=== PATIENT | male | born 1985 | race Caucasian/White ===

== ENCOUNTER 2019-03-11 18:07 | Emergency (ER) | payer BC, MEDICAID ==
--- NOTE | 2019-03-11 19:49 | EDM.PDOC ---
ED HPI GENERAL MEDICAL PROBLEM - General Chief Complaint: Skin Complaint Stated Complaint: ATHLETES FOOT Time Seen by Provider: 03/11/19 19:15 Source of Information: Reports: Patient History Limitations: Reports: No Limitations - History of Present Illness INITIAL COMMENTS - FREE TEXT/NARRATIVE: HISTORY AND PHYSICAL: History of present illness: Patient is a 33-year-old male who presents to the emergency room with complaints of athlete's foot to the anterior aspect of his right foot. Patient states he has had this before and did have to have prescription strength antifungal cream to get rid of it. He states that he has had sweaty feet and his work boots for long periods of time and has noticed the symptoms progressively getting worse. He states he has tried using multiple over-the- counter remedies without any help. Patient denies any fever, chills, headache, change in vision, syncope or near syncope. Denies any chest pain, back pain, shortness of breath or cough. Denies any GI or symptoms. Patient has been eating and drinking appropriately. Review of systems: As per history of present illness and below otherwise all systems reviewed and negative. Past medical history: As per history of present illness and as reviewed below otherwise noncontributory. Surgical history: As per history of present illness and as reviewed below otherwise noncontributory. Social history: See social history for further information Family history: As per history of present illness and as reviewed below otherwise noncontributory. Physical exam: General: Well-developed and well-nourished 33-year-old male. Alert and oriented. Nontoxic-appearing and in no acute distress. HEENT: Atraumatic, normocephalic, pupils equal and reactive bilaterally, negative for conjunctival pallor or scleral icterus, mucous membranes moist, trachea midline. No drooling or trismus noted. No meningeal signs. No hot potato voice noted. Lungs: Clear to auscultation, breath sounds equal bilaterally. Heart: S1S2, regular rate and rhythm without overt murmur Skin: Palmar size area of erythema with fungal type scales to the anterior aspect of the left foot. Mild erythema around the site. Otherwise skin is intact, warm, dry. No lesions or rashes noted. Extremities: Atraumatic, moves all extremities per self without difficulty or deficits, negative for cords or calf pain. Neurovascular unremarkable. Neuro: Awake, alert, oriented. Cranial nerves II through XII unremarkable. Cerebellum unremarkable. Motor and sensory unremarkable throughout. Exam nonfocal. Notes: We discussed the importance of having close follow-up with primary care for reevaluation of this. Medication and supportive care measures were reviewed and discussed. Voices understanding and is agreeable to plan of care. Denies any further questions or concerns at this time. Diagnostics: None Therapeutics: None Prescription: Keflex Impression: Tinea pedis Plan: 1. Please do aluminum acetate topical soaks twice daily for 15 to 30 minutes over the next 7 days. This can be bought [id number]. 2. The Keflex is an oral antibiotic, please take this as directed. 3. You can use cebw-vci-xznsgey Lamisil 1% cream twice daily for 1 to 4 weeks. If you have already been using these octq-lun-pxyobdl products you can get the Naftifine, although I believe this medication is very expensive. Please try all nbbm-kpl-ujwspxw products first before resorting to this. 4. Follow-up with your primary care provider as we discussed. Return to the ED as needed and as discussed. Definitive disposition and diagnosis as appropriate pending reevaluation and review of above. Right Feet Pain Score (Numeric/FACES): 8 - Related Data Allergies Allergy/AdvReac Type Severity Reaction Status Date / Time No Known Allergies Allergy Verified 05/22/18 18:02 MDT Home Meds: Home Meds Methylphenidate. 1 tab PO DAILY 05/22/18 [History] lamoTRIgine [Lamotrigine] 100 mg PO 03/11/19 [History] Past Medical History HEENT History: Reports: Impaired Vision Other HEENT History: wears contacts Musculoskeletal History: Reports: Fracture Other Musculoskeletal History: right hand and arm left great toe left hand Psychiatric History: Reports: ADHD Social & Family History - Family History Family Medical History: Noncontributory - Tobacco Use Smoking Status *Q: Never Smoker Second Hand Smoke Exposure: No - Caffeine Use Caffeine Use: Reports: None - Alcohol Use Days Per Week of Alcohol Use: 3 Number of Drinks Per Day: 3 Total Drinks Per Week: 9 - Recreational Drug Use Recreational Drug Use: No ED ROS GENERAL - Review of Systems Review Of Systems: Comprehensive ROS is negative, except as noted in HPI. ED EXAM, SKIN/RASH Exam: See Below (See dictation) Course - Vital Signs Last Recorded V/S: Last Vital Signs Temp 97.3 F 03/11/19 20:00 Pulse 72 03/11/19 20:00 Resp 18 03/11/19 20:00 BP 118/78 03/11/19 20:00 Pulse Ox 98 03/11/19 20:00 Departure - Departure Time of Disposition: 19:49 Disposition: Home, Self-Care 01 Clinical Impression: Tinea pedis Qualifiers: Laterality: right Qualified Code(s): B35.3 - Tinea pedis - Discharge Information Instructions: Athlete's Foot, [id number] Referrals: PCP,None [Primary Care Provider] - Forms: ED Department Discharge Additional Instructions: General discharge the following information is given to patients seen in the emergency department who are being discharged to home. This information is to outline your options for follow-up care. We provide all patients seen in our emergency department with a follow-up referral. The need for follow-up, as well as the timing and circumstances, are variable depending upon the specifics of your emergency department visit. If you don't have a primary care physician on staff, we will provide you with a referral. We always advise you to contact your personal physician following an emergency department visit to inform them of the circumstance of the visit and for follow-up with them and/or the need for any referrals to a consulting specialist. The emergency department will also refer you to a specialist when appropriate. This referral assures that you have the opportunity for follow-up care with a specialist. All of these measure are taken in an effort to provide you with optimal care, which includes your follow-up. Under all circumstances we always encourage you to contact your private physician who remains a resource for coordinating your care. When calling for follow-up care, please make the office aware that this follow-up is from your recent emergency room visit. If for any reason you are refused follow-up, please contact the [facility] Emergency Department at and asked to speak to the emergency department charge nurse. [facility] [address] [place] [id number] [id number] 1. Please do aluminum acetate topical soaks twice daily for 15 to 30 minutes over the next 7 days. This can be bought [id number]. 2. The Keflex is an oral antibiotic, please take this as directed. 3. You can use hflb-kbz-dykejlc Lamisil 1% cream twice daily for 1 to 4 weeks. If you have already been using these smum-hqd-zbalmzk products you can get the Naftifine, although I believe this medication is very expensive. Please try all sclb-jht-spzlvbs products first before resorting to this. 4. Follow-up with your primary care provider as we discussed. Return to the ED as needed and as discussed. Sepsis Event Note - Evaluation Sepsis Screening Result: No Definite Risk - Focused Exam Vital Signs: Vital Signs Temp Pulse Resp BP Pulse Ox 03/11/19 20:00 97.3 F 72 18 118/78 98 03/11/19 18:59 97.5 F 78 18 125/80 98 Date Exam was Performed: 03/11/19 Time Exam was Performed: 21:19
[2019-03-11 20:04] VITALS: BP 118/78; PULSE 72
== END 2019-03-11 20:00 | disposition home or self-care (01) ==
LOC: MW.ED 18:07
DX: B35.3 Tinea pedis (principal); F90.9 Attention-deficit hyperactivity disorder, unspecified type; Z79.899 Other long term (current) drug therapy
CPT/HCPCS: 99283

== ENCOUNTER 2023-01-15 19:36 | Emergency (ER) | payer BC ==
[2023-01-15] MEDS ORDERED: Sodium Chloride 0.9% 10 ML Syringe FLUSH PRN (20:25)
[2023-01-15] MEDS ORDERED: Sodium Chloride 0.9% 1,000 ML IV ONE (20:25)
[2023-01-15] MEDS ORDERED: Sodium Chloride 0.9% 2.5 ML Syringe FLUSH PRN (20:25)
[2023-01-15 20:36] LABS: BASOPHILS ABSOLUTE AUTO 0.04 K/uL (0.00-0.20); BASOPHILS PERCENT AUTO 0.3 % (0.0-1.0); EOSINOPHILS ABSOLUTE AUTO 0.01 K/uL (0.00-0.45); EOSINOPHILS PERCENT AUTO 0.1 % (0.0-6.0); HEMATOCRIT 45.1 % (42.0-52.0); HEMOGLOBIN 15.6 g/dL (14.0-18.0); IMMATURE GRAN ABSOLUTE AUTO 0.04 K/uL (0.00-0.05); IMMATURE GRAN PERCENT AUTO 0.3 % (0.0-0.4); LYMPHOCYTES ABSOLUTE AUTO 3.69 K/uL (1.00-4.80); LYMPHOCYTES PERCENT AUTO 25.4 % (24.0-44.0); MEAN CORPUSCULAR HEMOGLOBIN 28.5 pg (28.0-32.0); MEAN CORPUSCULAR HGB CONC 34.6 g/dL (32.0-36.0); MEAN CORPUSCULAR VOLUME 82.3 fL (83.0-99.0); MONOCYTES ABSOLUTE AUTO 1.03 K/uL (0.00-0.80); MONOCYTES PERCENT AUTO 7.1 % (0.0-8.0); NEUTROPHILS ABSOLUTE AUTO 9.74 K/uL (1.80-7.70); NEUTROPHILS PERCENT AUTO 66.8 % (41.0-71.0); PLATELET COUNT,PLT 251 K/uL (150-400); RED BLOOD CELL COUNT 5.48 M/uL (4.52-5.90); WHITE BLOOD CELL COUNT,WBC 14.55 K/uL (3.9-11.3)
[2023-01-15] MEDS ORDERED: Ondansetron 4 MG/2 ML SDV IVPUSH STA (20:41)
[2023-01-15 20:49] LABS: A/G RATIO 1.2 (0.9-1.6); BILIRUBIN TOTAL 0.9 mg/dL (0.2-1.0); CALCIUM 10.3 mg/dL (8.5-10.1); CARBON DIOXIDE,CO2 24.5 mmol/L (21.0-32.0); CREATININE 1.1 mg/dL (0.8-1.3); EST CRCL DRUG DOSING (CG) 109.89 mL/min; MAGNESIUM 1.9 mg/dL (1.8-2.4); POTASSIUM,K 3.6 mmol/L (3.5-5.1); PROTEIN TOTAL,TP 9.2 g/dL (6.4-8.2)
[2023-01-15 21:18] LABS: CORONAVIRUS COVID-19 NAA NEGATIVE (NEGATIVE); INFLUENZA A NAA NEGATIVE (NEGATIVE); INFLUENZA B NAA NEGATIVE (NEGATIVE); RESPIRATORY SYNCYTIAL VIR NAA NEGATIVE (NEGATIVE)
[2023-01-15 22:31] VITALS: BP 126/80; PULSE 70
== END 2023-01-15 21:40 | disposition home or self-care (01) ==
LOC: MW.ED 19:36
DX: R41.0 Disorientation, unspecified (principal); R11.10 Vomiting, unspecified; Z20.822 Contact with and (suspected) exposure to COVID-19
CPT/HCPCS: 0241U; 36415; 71045; 80053; 83690; 83735; 84484; 85025; 93005; 96361; 96374; 99285; J2405; J3490; J7030; 93010; 99284

== ENCOUNTER 2023-04-08 05:29 | Emergency (ER) | payer SELFPAY ==
[2023-04-08 05:41] VITALS: BP 136/91
[2023-04-08 05:51] VITALS: PULSE 94
[2023-04-08 06:45] LABS: CORONAVIRUS COVID-19 NAA NEGATIVE (NEGATIVE); INFLUENZA A NAA NEGATIVE (NEGATIVE); INFLUENZA B NAA NEGATIVE (NEGATIVE); RESPIRATORY SYNCYTIAL VIR NAA NEGATIVE (NEGATIVE)
== END 2023-04-08 06:03 | disposition home or self-care (01) ==
LOC: MW.ED 05:29
DX: R05.9 Cough, unspecified (principal); R49.1 Aphonia
CPT/HCPCS: 0241U; 87651; 99283; 99282

== ENCOUNTER 2023-07-15 06:57 | Emergency (ER) | payer SELFPAY ==
[2023-07-15 07:45] VITALS: BP 139/90; PULSE 102
[2023-07-15] MEDS: Ibuprofen 600 MG Tab PO ONE (07:49)
== END 2023-07-15 07:50 | disposition home or self-care (01) ==
LOC: MW.ED 06:57
DX: S62.324A Displaced fracture of shaft of fourth metacarpal bone, right hand, initial encounter for closed fracture (principal); S62.306A Unspecified fracture of fifth metacarpal bone, right hand, initial encounter for closed fracture; Z79.899 Other long term (current) drug therapy; Y04.8XXA Assault by other bodily force, initial encounter
CPT/HCPCS: 29125; 73130; 99283; A9270

== ENCOUNTER 2024-03-30 10:39 | Emergency (ER) | payer SELFPAY ==
[2024-03-30 11:12] VITALS: BP 139/100; PULSE 100
== END 2024-03-30 12:52 | disposition home or self-care (01) ==
LOC: MW.ED 10:39
DX: M70.21 Olecranon bursitis, right elbow (principal); Z75.8 Other problems related to medical facilities and other health care; Z79.899 Other long term (current) drug therapy
CPT/HCPCS: 73080-26-RT; 73080-RT; 99283

== ENCOUNTER 2024-03-30 23:11 | Emergency (ER) | payer SELFPAY | END 2024-03-31 00:32 | disposition left against medical advice (07) | LOC: MW.ED 23:11 | DX: Z53.21 Procedure and treatment not carried out due to patient leaving prior to being seen by health care provider (principal) ==

== ENCOUNTER 2024-05-17 11:44 | Emergency (ER) | payer SELFPAY ==
[2024-05-17] MEDS ORDERED: Sodium Chloride 0.9% 2.5 ML Syringe FLUSH PRN (11:54)
[2024-05-17] MEDS ORDERED: Sodium Chloride 0.9% 10 ML Syringe FLUSH PRN (11:54)
[2024-05-17] MEDS: Ondansetron 4 MG/2 ML SDV IVPUSH ONE (12:06)
[2024-05-17] MEDS: Sodium Chloride 0.9% 1,000 ML IV ONE ×2 (12:06→12:59)
[2024-05-17] MEDS: LORazepam 2 MG/ML SDV IVPUSH ONE (12:06)
[2024-05-17 12:08] LABS: HEMATOCRIT 43.6 % (42.0-52.0); HEMOGLOBIN 14.6 g/dL (14.0-18.0); MEAN CORPUSCULAR HEMOGLOBIN 25.6 pg (28.0-32.0); MEAN CORPUSCULAR HGB CONC 33.5 g/dL (32.0-36.0); MEAN CORPUSCULAR VOLUME 76.5 fL (83.0-99.0); PLATELET COUNT,PLT 110 K/uL (150-400); WHITE BLOOD CELL COUNT,WBC 17.17 K/uL (3.9-11.3)
[2024-05-17 12:11] VITALS: BP 142/89
[2024-05-17 12:30] LABS: ALANINE AMINOTRANSFERASE,ALT 75 IU/L (14-63); ALBUMIN 3.9 g/dL (3.4-5.0); ALKALINE PHOSPHATASE 60 U/L (46-116); ASPARTATE AMNIOTRANSFERASE,AST 177 IU/L (15-37); BILIRUBIN TOTAL 2.1 mg/dL (0.2-1.0); BLOOD UREA NITROGEN,BUN 17 mg/dL (7.0-18.0); CALCIUM 9.1 mg/dL (8.5-10.1); CARBON DIOXIDE,CO2 24.7 mmol/L (21.0-32.0); CHLORIDE,CL 87 mmol/L (98-107); CREATININE 1.4 mg/dL (0.8-1.3); EST CRCL DRUG DOSING (CG) 85.51 mL/min; GLUCOSE RANDOM 121 mg/dL (74-106); LIPASE 54 U/L (16-77); POTASSIUM,K 3.2 mmol/L (3.5-5.1); PROTEIN TOTAL,TP 7.8 g/dL (6.4-8.2); SODIUM,NA 132 mmol/L (136-148)
[2024-05-17 12:31] LABS: ESTIMATED GFR 66 mL/min (>60); ETHANOL BLOOD MEDICAL < 3.0 mg/dL
[2024-05-17 12:43] LABS: LYMPHOCYTES ABSOLUTE MAN 2.06 K/uL (1.00-4.80); LYMPHOCYTES PERCENT MAN 12 % (24-44); MONOCYTES ABSOLUTE MAN 1.03 K/uL (0.00-0.80); MONOCYTES PERCENT MAN 6 % (0-8); SEG NEUTROPHILS ABSOLUTE MAN 14.08 K/uL (1.80-7.70); SEG NEUTROPHILS PERCENT MAN 82 % (41-71)
[2024-05-17] MEDS: Iopamidol 755 MG/ML 500 ML Multipack Bottle IVPUSH STA (13:30)
[2024-05-17] MEDS: cefTRIAXone 1 GM Vial IM ONE (15:06)
[2024-05-17 16:24] LABS: APPEARANCE,URINE CLEAR; COLOR,URINE ORANGE; GLUCOSE,URINE NEGATIVE (NEGATIVE); KETONES,URINE 40 mg/dL (NEGATIVE); LEUKOCYTE ESTERASE,URINE NEGATIVE (NEGATIVE); NITRITE,URINE NEGATIVE (NEGATIVE); OCCULT BLOOD,URINE MODERATE (NEGATIVE); PROTEIN,URINE 100 mg/dL (NEGATIVE)
[2024-05-17 16:29] LABS: BILIRUBIN,URINE MODERATE (NEGATIVE)
[2024-05-17 16:35] LABS: AMPHETAMINES SCREEN, URINE NEGATIVE (CUTOFF=500); BARBITURATE SCREEN,URINE NEGATIVE (CUTOFF=200); BENZODIAZEPINES SCREEN,URINE PRESUMPTIVE POSITIVE (CUTOFF=150); BUPRENORPHINE SCREEN,URINE NEGATIVE (CUTOFF=10); METHADONE SCREEN, URINE NEGATIVE (CUTOFF=200); METHAMPHETAMINES SCREEN, URINE NEGATIVE (CUTOFF=500); OXYCODONE SCREEN,URINE NEGATIVE (CUT0FF=100); PCP SCREEN,URINE NEGATIVE (CUTOFF=25); THC SCREEN,URINE 20 NG/ML NEGATIVE (CUTOFF=50)
[2024-05-17 16:36] LABS: RBC,URINE 0-2 (0-2/HPF)
[2024-05-17 16:37] LABS: BACTERIA,URINE NOT SEEN (NEGATIVE); EPITHELIAL CELLS,URINE NOT SEEN (NONE-FEW); WBC,URINE NONE SEEN (0-5/HPF)
[2024-05-17 17:15] VITALS: PULSE 88
== END 2024-05-17 17:16 | disposition home or self-care (01) ==
LOC: MW.ED 11:44
DX: K52.9 Noninfective gastroenteritis and colitis, unspecified (principal); J06.9 Acute upper respiratory infection, unspecified; Z75.8 Other problems related to medical facilities and other health care; Z79.899 Other long term (current) drug therapy
CPT/HCPCS: 36415; 74177; 76705; 80053; 80305; 80307; 81001; 83690; 85025; 87428; 96361; 96372; 96374; 96375; 99284; J0696; J2060; J2405; J7030; Q9967; 99283

== ENCOUNTER 2024-08-14 05:51 | Emergency (ER) | payer BC ==
[2024-08-14 06:05] VITALS: BP 158/117; PULSE 89
== END 2024-08-14 07:28 | disposition home or self-care (01) ==
LOC: MW.ED 05:51
DX: B36.9 Superficial mycosis, unspecified (principal); Z79.899 Other long term (current) drug therapy
CPT/HCPCS: 99282; 99283

== ENCOUNTER 2024-08-15 00:59 | Emergency (ER) | payer BC ==
[2024-08-15 01:46] VITALS: BP 141/108
[2024-08-15 02:23] LABS: BASOPHILS ABSOLUTE AUTO 0.07 K/uL (0.00-0.20); EOSINOPHILS ABSOLUTE AUTO 0.06 K/uL (0.00-0.45); EOSINOPHILS PERCENT AUTO 0.9 % (0.0-6.0); HEMATOCRIT 44.9 % (42.0-52.0); HEMOGLOBIN 13.9 g/dL (14.0-18.0); IMMATURE GRAN ABSOLUTE AUTO 0.01 K/uL (0.00-0.05); IMMATURE GRAN PERCENT AUTO 0.1 % (0.0-0.4); LYMPHOCYTES ABSOLUTE AUTO 2.99 K/uL (1.00-4.80); LYMPHOCYTES PERCENT AUTO 43.1 % (24.0-44.0); MEAN CORPUSCULAR HEMOGLOBIN 22.2 pg (28.0-32.0); MEAN CORPUSCULAR VOLUME 71.7 fL (83.0-99.0); MEAN PLATELET VOLUME 9.3 fL (9.4-12.4); MONOCYTES ABSOLUTE AUTO 0.48 K/uL (0.00-0.80); MONOCYTES PERCENT AUTO 6.9 % (0.0-8.0); NEUTROPHILS ABSOLUTE AUTO 3.33 K/uL (1.80-7.70); PLATELET COUNT,PLT 349 K/uL (150-400); RED BLOOD CELL COUNT 6.26 M/uL (4.52-5.90); WHITE BLOOD CELL COUNT,WBC 6.94 K/uL (3.9-11.3)
[2024-08-15 02:35] LABS: BILIRUBIN,URINE NEGATIVE (NEGATIVE); COLOR,URINE YELLOW; GLUCOSE,URINE NEGATIVE (NEGATIVE); KETONES,URINE NEGATIVE (NEGATIVE); LEUKOCYTE ESTERASE,URINE NEGATIVE (NEGATIVE); NITRITE,URINE NEGATIVE (NEGATIVE); OCCULT BLOOD,URINE LARGE (NEGATIVE); PROTEIN,URINE 100 mg/dL (NEGATIVE); UROBILINOGEN,URINE 0.2 EU/dL (<2.0)
[2024-08-15 02:36] LABS: APPEARANCE,URINE HAZY
[2024-08-15 02:38] LABS: INR 0.97 (0.86-1.11)
[2024-08-15 02:42] LABS: BACTERIA,URINE FEW (NEGATIVE); MUCUS,URINE LIGHT (NONE-MOD); RBC,URINE 15-20 (0-2/HPF); WBC,URINE 0-2 (0-5/HPF)
[2024-08-15 02:45] LABS: AMPHETAMINES SCREEN, URINE NEGATIVE (CUTOFF=500); BARBITURATE SCREEN,URINE NEGATIVE (CUTOFF=200); BENZODIAZEPINES SCREEN,URINE NEGATIVE (CUTOFF=150); BUPRENORPHINE SCREEN,URINE NEGATIVE (CUTOFF=10); METHADONE SCREEN, URINE NEGATIVE (CUTOFF=200); METHAMPHETAMINES SCREEN, URINE NEGATIVE (CUTOFF=500); OXYCODONE SCREEN,URINE NEGATIVE (CUT0FF=100); PCP SCREEN,URINE NEGATIVE (CUTOFF=25); THC SCREEN,URINE 20 NG/ML NEGATIVE (CUTOFF=50)
[2024-08-15 02:49] LABS: A/G RATIO 1.1 (0.9-1.6); ACETAMINOPHEN <2.0 ug/mL; ALANINE AMINOTRANSFERASE,ALT 42 IU/L (14-63); ALBUMIN 4.6 g/dL (3.4-5.0); ALKALINE PHOSPHATASE 74 U/L (46-116); ASPARTATE AMNIOTRANSFERASE,AST 60 IU/L (15-37); BILIRUBIN TOTAL 0.6 mg/dL (0.2-1.0); BLOOD UREA NITROGEN,BUN 7 mg/dL (7.0-18.0); CALCIUM 9.1 mg/dL (8.5-10.1); CARBON DIOXIDE,CO2 28.1 mmol/L (21.0-32.0); CHLORIDE,CL 102 mmol/L (98-107); CREATININE 1.1 mg/dL (0.8-1.3); EST CRCL DRUG DOSING (CG) 107.76 mL/min; ESTIMATED GFR 88 mL/min (>60); ETHANOL BLOOD MEDICAL 407 mg/dL; GLUCOSE RANDOM 110 mg/dL (74-106); MAGNESIUM 1.9 mg/dL (1.8-2.4); POTASSIUM,K 3.9 mmol/L (3.5-5.1); PROTEIN TOTAL,TP 8.7 g/dL (6.4-8.2); SALICYLATE 0.9 mg/dL (0.0-20.0); SODIUM,NA 143 mmol/L (136-148)
[2024-08-15 03:20] VITALS: PULSE 84
== END 2024-08-15 03:20 ==
LOC: MW.ED 00:59
DX: Z02.89 Encounter for other administrative examinations (principal); F10.129 Alcohol abuse with intoxication, unspecified; R31.21 Asymptomatic microscopic hematuria; R03.0 Elevated blood-pressure reading, without diagnosis of hypertension; Z87.2 Personal history of diseases of the skin and subcutaneous tissue
CPT/HCPCS: 36415; 80053; 80143; 80179; 80305; 80307; 81001; 83735; 85025; 85610; 93005; 93010; 99283; 99285

== ENCOUNTER 2024-08-29 15:40 | Emergency (ER) | payer BC ==
[2024-08-29] MEDS ORDERED: Sodium Chloride 0.9% 2.5 ML Syringe FLUSH PRN (16:39)
[2024-08-29] MEDS ORDERED: Sodium Chloride 0.9% 10 ML Syringe FLUSH PRN (16:39)
[2024-08-29 16:57] LABS: BASOPHILS ABSOLUTE AUTO 0.04 K/uL (0.00-0.20); BASOPHILS PERCENT AUTO 0.4 % (0.0-1.0); EOSINOPHILS ABSOLUTE AUTO 0.03 K/uL (0.00-0.45); EOSINOPHILS PERCENT AUTO 0.3 % (0.0-6.0); IMMATURE GRAN ABSOLUTE AUTO 0.02 K/uL (0.00-0.05); IMMATURE GRAN PERCENT AUTO 0.2 % (0.0-0.4); LYMPHOCYTES ABSOLUTE AUTO 2.04 K/uL (1.00-4.80); LYMPHOCYTES PERCENT AUTO 20.5 % (24.0-44.0); MEAN PLATELET VOLUME 9.4 fL (9.4-12.4); MONOCYTES ABSOLUTE AUTO 0.49 K/uL (0.00-0.80); MONOCYTES PERCENT AUTO 4.9 % (0.0-8.0); NEUTROPHILS ABSOLUTE AUTO 7.34 K/uL (1.80-7.70); NEUTROPHILS PERCENT AUTO 73.7 % (41.0-71.0); NRBC ABSOLUTE 0.00 K/uL (0.00-0.02); NRBC PERCENT 0.0 /100WBC (0.0-0.2); PLATELET COUNT,PLT 186 K/uL (150-400); RED BLOOD CELL COUNT 6.12 M/uL (4.52-5.90); WHITE BLOOD CELL COUNT,WBC 9.96 K/uL (3.9-11.3)
[2024-08-29 17:26] LABS: A/G RATIO 1.0 (0.9-1.6); ALANINE AMINOTRANSFERASE,ALT 42 IU/L (14-63); ASPARTATE AMNIOTRANSFERASE,AST 59 IU/L (15-37); BILIRUBIN TOTAL 0.6 mg/dL (0.2-1.0); BLOOD UREA NITROGEN,BUN 11 mg/dL (7.0-18.0); CARBON DIOXIDE,CO2 26.5 mmol/L (21.0-32.0); CHLORIDE,CL 104 mmol/L (98-107); CREATININE 1.1 mg/dL (0.8-1.3); ESTIMATED GFR 88 mL/min (>60); ETHANOL BLOOD MEDICAL 462 mg/dL; GLUCOSE RANDOM 90 mg/dL (74-106); POTASSIUM,K 3.8 mmol/L (3.5-5.1); PROTEIN TOTAL,TP 7.9 g/dL (6.4-8.2); SODIUM,NA 144 mmol/L (136-148)
[2024-08-29 17:32] VITALS: BP 136/79; PULSE 84
== END 2024-08-29 18:58 | disposition left against medical advice (07) ==
LOC: MW.ED 15:40
DX: F10.120 Alcohol abuse with intoxication, uncomplicated (principal); E86.0 Dehydration; Z79.899 Other long term (current) drug therapy; Y90.8 Blood alcohol level of 240 mg/100 ml or more
CPT/HCPCS: 36415; 80053; 80307; 85025; 96360; 99284; J7030; 99283

== ENCOUNTER 2024-08-31 12:58 | Emergency (ER) | payer BC ==
[2024-08-31 13:14] VITALS: BP 142/106
[2024-08-31 13:22] VITALS: PULSE 94
== END 2024-08-31 13:28 | disposition home or self-care (01) ==
LOC: MW.ED 12:58
DX: Z02.89 Encounter for other administrative examinations (principal); Z79.899 Other long term (current) drug therapy
CPT/HCPCS: 99282; 99284

== ENCOUNTER 2024-08-31 16:53 | Emergency (ER) | payer BC ==
[2024-08-31 17:01] LABS: BASOPHILS ABSOLUTE AUTO 0.06 K/uL (0.00-0.20); BASOPHILS PERCENT AUTO 0.7 % (0.0-1.0); EOSINOPHILS ABSOLUTE AUTO 0.03 K/uL (0.00-0.45); EOSINOPHILS PERCENT AUTO 0.4 % (0.0-6.0); IMMATURE GRAN ABSOLUTE AUTO 0.02 K/uL (0.00-0.05); IMMATURE GRAN PERCENT AUTO 0.2 % (0.0-0.4); LYMPHOCYTES ABSOLUTE AUTO 2.82 K/uL (1.00-4.80); LYMPHOCYTES PERCENT AUTO 33.4 % (24.0-44.0); MEAN PLATELET VOLUME 9.2 fL (9.4-12.4); MONOCYTES ABSOLUTE AUTO 0.42 K/uL (0.00-0.80); MONOCYTES PERCENT AUTO 5.0 % (0.0-8.0); NEUTROPHILS ABSOLUTE AUTO 5.10 K/uL (1.80-7.70); NEUTROPHILS PERCENT AUTO 60.3 % (41.0-71.0); NRBC ABSOLUTE 0.00 K/uL (0.00-0.02); NRBC PERCENT 0.0 /100WBC (0.0-0.2); PLATELET COUNT,PLT 187 K/uL (150-400); RED BLOOD CELL COUNT 6.00 M/uL (4.52-5.90); WHITE BLOOD CELL COUNT,WBC 8.45 K/uL (3.9-11.3)
[2024-08-31 17:17] VITALS: BP 137/104; PULSE 100
[2024-08-31 17:23] LABS: GLUCOSE,URINE NEGATIVE (NEGATIVE); OCCULT BLOOD,URINE MODERATE (NEGATIVE)
[2024-08-31 17:28] LABS: A/G RATIO 0.9 (0.9-1.6); ALANINE AMINOTRANSFERASE,ALT 49 IU/L (14-63); ASPARTATE AMNIOTRANSFERASE,AST 86 IU/L (15-37); BILIRUBIN TOTAL 0.6 mg/dL (0.2-1.0); BLOOD UREA NITROGEN,BUN 10 mg/dL (7.0-18.0); CARBON DIOXIDE,CO2 28.2 mmol/L (21.0-32.0); CHLORIDE,CL 100 mmol/L (98-107); CREATININE 1.1 mg/dL (0.8-1.3); GLUCOSE RANDOM 145 mg/dL (74-106); POTASSIUM,K 3.6 mmol/L (3.5-5.1); PROTEIN TOTAL,TP 8.1 g/dL (6.4-8.2); SODIUM,NA 139 mmol/L (136-148)
[2024-08-31 17:32] LABS: AMPHETAMINES SCREEN, URINE NEGATIVE (CUTOFF=500); APPEARANCE,URINE HAZY; BUPRENORPHINE SCREEN,URINE NEGATIVE (CUTOFF=10); METHADONE SCREEN, URINE NEGATIVE (CUTOFF=200); METHAMPHETAMINES SCREEN, URINE NEGATIVE (CUTOFF=500); OXYCODONE SCREEN,URINE NEGATIVE (CUT0FF=100); PCP SCREEN,URINE NEGATIVE (CUTOFF=25); THC SCREEN,URINE 20 NG/ML NEGATIVE (CUTOFF=50)
[2024-08-31 17:32] LABS: ESTIMATED GFR 88 mL/min (>60); ETHANOL BLOOD MEDICAL 467 mg/dL
[2024-08-31 17:35] LABS: EPITHELIAL CELLS,URINE RARE (NONE-FEW)
== END 2024-08-31 18:11 | disposition left against medical advice (07) ==
LOC: MW.ED 16:53
DX: F10.120 Alcohol abuse with intoxication, uncomplicated (principal); Z75.3 Unavailability and inaccessibility of health-care facilities; Z79.899 Other long term (current) drug therapy; Y90.9 Presence of alcohol in blood, level not specified
CPT/HCPCS: 36415; 71045; 80053; 80305; 80307; 81001; 83735; 84484; 85025; 99285; A9270; 99282

== ENCOUNTER 2024-08-31 23:13 | Emergency (ER) | payer BC ==
[2024-09-01 01:17] VITALS: BP 128/95; PULSE 85
== END 2024-09-01 00:06 | disposition home or self-care (01) ==
LOC: MW.ED 23:13
DX: J06.9 Acute upper respiratory infection, unspecified (principal); Z79.899 Other long term (current) drug therapy; Z75.3 Unavailability and inaccessibility of health-care facilities; Z02.89 Encounter for other administrative examinations
CPT/HCPCS: 36415; 71045; 80053; 80305; 80307; 81001; 83735; 84484; 85025; 99283; 99284; 99285; A9270; 99282

== ENCOUNTER 2024-10-14 14:21 | Emergency (ER) | payer BC ==
[2024-10-14 15:31] VITALS: BP 126/89; PULSE 78
== END 2024-10-14 15:31 | disposition home or self-care (01) ==
LOC: MW.ED 14:21
DX: Z02.89 Encounter for other administrative examinations (principal); Z79.899 Other long term (current) drug therapy
CPT/HCPCS: 99282; 99283

== ENCOUNTER 2024-10-25 15:39 | Emergency (ER) | payer SELFPAY ==
[2024-10-25 16:05] VITALS: BP 133/94; PULSE 107
[2024-10-25 16:12] LABS: BASOPHILS ABSOLUTE AUTO 0.09 K/uL (0.00-0.20); BASOPHILS PERCENT AUTO 1.2 % (0.0-1.0); EOSINOPHILS ABSOLUTE AUTO 0.04 K/uL (0.00-0.45); EOSINOPHILS PERCENT AUTO 0.5 % (0.0-6.0); IMMATURE GRAN ABSOLUTE AUTO 0.01 K/uL (0.00-0.05); IMMATURE GRAN PERCENT AUTO 0.1 % (0.0-0.4); LYMPHOCYTES ABSOLUTE AUTO 3.46 K/uL (1.00-4.80); LYMPHOCYTES PERCENT AUTO 47.5 % (24.0-44.0); MEAN PLATELET VOLUME 9.4 fL (9.4-12.4); MONOCYTES ABSOLUTE AUTO 0.71 K/uL (0.00-0.80); MONOCYTES PERCENT AUTO 9.7 % (0.0-8.0); NEUTROPHILS ABSOLUTE AUTO 2.98 K/uL (1.80-7.70); NEUTROPHILS PERCENT AUTO 41.0 % (41.0-71.0); NRBC ABSOLUTE 0.00 K/uL (0.00-0.02); NRBC PERCENT 0.0 /100WBC (0.0-0.2); PLATELET COUNT,PLT 298 K/uL (150-400); RED BLOOD CELL COUNT 5.35 M/uL (4.52-5.90); WHITE BLOOD CELL COUNT,WBC 7.29 K/uL (3.9-11.3)
[2024-10-25 16:49] LABS: A/G RATIO 1.2 (0.9-1.6); ALANINE AMINOTRANSFERASE,ALT 46 IU/L (14-63); ASPARTATE AMNIOTRANSFERASE,AST 72 IU/L (15-37); BILIRUBIN TOTAL 0.6 mg/dL (0.2-1.0); BLOOD UREA NITROGEN,BUN 7 mg/dL (7.0-18.0); CARBON DIOXIDE,CO2 26.3 mmol/L (21.0-32.0); CHLORIDE,CL 102 mmol/L (98-107); CREATININE 1.1 mg/dL (0.8-1.3); EST CRCL DRUG DOSING (CG) 98.34 mL/min; GLUCOSE RANDOM 106 mg/dL (74-106); POTASSIUM,K 3.8 mmol/L (3.5-5.1); PROTEIN TOTAL,TP 7.7 g/dL (6.4-8.2); SODIUM,NA 142 mmol/L (136-148); TSH ULTRASENSITIVE 0.72 uIU/mL (0.36-3.74)
[2024-10-25 16:53] LABS: ESTIMATED GFR 88 mL/min (>60); ETHANOL BLOOD MEDICAL 356 mg/dL
[2024-10-25 17:07] LABS: APPEARANCE,URINE CLEAR; GLUCOSE,URINE NEGATIVE (NEGATIVE); OCCULT BLOOD,URINE SMALL (NEGATIVE)
[2024-10-25 17:17] LABS: AMPHETAMINES SCREEN, URINE NEGATIVE (CUTOFF=500); BUPRENORPHINE SCREEN,URINE NEGATIVE (CUTOFF=10); METHADONE SCREEN, URINE NEGATIVE (CUTOFF=200); METHAMPHETAMINES SCREEN, URINE NEGATIVE (CUTOFF=500); OXYCODONE SCREEN,URINE NEGATIVE (CUT0FF=100); PCP SCREEN,URINE NEGATIVE (CUTOFF=25); THC SCREEN,URINE 20 NG/ML NEGATIVE (CUTOFF=50)
[2024-10-25 17:22] LABS: EPITHELIAL CELLS,URINE OCCASIONAL (NONE-FEW)
== END 2024-10-25 20:49 | disposition home or self-care (01) ==
LOC: MW.ED 15:39
DX: F10.129 Alcohol abuse with intoxication, unspecified (principal); F41.9 Anxiety disorder, unspecified; F32.A Depression, unspecified; Z75.3 Unavailability and inaccessibility of health-care facilities; Z79.899 Other long term (current) drug therapy; Z59.02 Unsheltered homelessness
CPT/HCPCS: 36415; 80053; 80143; 80179; 80305; 80307; 81001; 83735; 84443; 85025; 93005; 99283; 99285

== ENCOUNTER 2024-10-26 11:17 | Emergency (ER) | payer SELFPAY ==
[2024-10-26 12:27] LABS: BASOPHILS ABSOLUTE AUTO 0.08 K/uL (0.00-0.20); BASOPHILS PERCENT AUTO 1.3 % (0.0-1.0); EOSINOPHILS ABSOLUTE AUTO 0.06 K/uL (0.00-0.45); EOSINOPHILS PERCENT AUTO 1.0 % (0.0-6.0); IMMATURE GRAN ABSOLUTE AUTO 0.01 K/uL (0.00-0.05); IMMATURE GRAN PERCENT AUTO 0.2 % (0.0-0.4); LYMPHOCYTES ABSOLUTE AUTO 3.00 K/uL (1.00-4.80); LYMPHOCYTES PERCENT AUTO 48.3 % (24.0-44.0); MEAN PLATELET VOLUME 9.1 fL (9.4-12.4); MONOCYTES ABSOLUTE AUTO 0.44 K/uL (0.00-0.80); MONOCYTES PERCENT AUTO 7.1 % (0.0-8.0); NEUTROPHILS ABSOLUTE AUTO 2.62 K/uL (1.80-7.70); NEUTROPHILS PERCENT AUTO 42.1 % (41.0-71.0); NRBC ABSOLUTE 0.00 K/uL (0.00-0.02); NRBC PERCENT 0.0 /100WBC (0.0-0.2); PLATELET COUNT,PLT 264 K/uL (150-400); RED BLOOD CELL COUNT 5.50 M/uL (4.52-5.90); WHITE BLOOD CELL COUNT,WBC 6.21 K/uL (3.9-11.3)
[2024-10-26 12:59] LABS: APPEARANCE,URINE CLEAR; GLUCOSE,URINE NEGATIVE (NEGATIVE); OCCULT BLOOD,URINE NEGATIVE (NEGATIVE)
[2024-10-26 13:09] LABS: AMPHETAMINES SCREEN, URINE NEGATIVE (CUTOFF=500); BUPRENORPHINE SCREEN,URINE NEGATIVE (CUTOFF=10); METHADONE SCREEN, URINE NEGATIVE (CUTOFF=200); METHAMPHETAMINES SCREEN, URINE NEGATIVE (CUTOFF=500); OXYCODONE SCREEN,URINE NEGATIVE (CUT0FF=100); PCP SCREEN,URINE NEGATIVE (CUTOFF=25); THC SCREEN,URINE 20 NG/ML NEGATIVE (CUTOFF=50)
[2024-10-26 13:10] LABS: A/G RATIO 1.1 (0.9-1.6); ALANINE AMINOTRANSFERASE,ALT 57 IU/L (14-63); ASPARTATE AMNIOTRANSFERASE,AST 73 IU/L (15-37); BILIRUBIN TOTAL 0.4 mg/dL (0.2-1.0); BLOOD UREA NITROGEN,BUN 5 mg/dL (7.0-18.0); CARBON DIOXIDE,CO2 27.1 mmol/L (21.0-32.0); CHLORIDE,CL 101 mmol/L (98-107); CREATININE 1.0 mg/dL (0.8-1.3); EST CRCL DRUG DOSING (CG) 118.53 mL/min; GLUCOSE RANDOM 108 mg/dL (74-106); POTASSIUM,K 3.7 mmol/L (3.5-5.1); PROTEIN TOTAL,TP 8.0 g/dL (6.4-8.2); SODIUM,NA 142 mmol/L (136-148); TSH ULTRASENSITIVE 0.93 uIU/mL (0.36-3.74)
[2024-10-26 13:12] LABS: ESTIMATED GFR 98 mL/min (>60)
[2024-10-26 13:13] LABS: ETHANOL BLOOD MEDICAL 468 mg/dL
[2024-10-26 13:31] LABS: EPITHELIAL CELLS,URINE FEW (NONE-FEW)
[2024-10-27] MEDS: LORazepam 2 MG/ML SDV IM ONE (08:49)
[2024-10-27 09:24] VITALS: BP 131/74; PULSE 83
== END 2024-10-27 11:22 ==
LOC: MW.ED 11:17
DX: F10.920 Alcohol use, unspecified with intoxication, uncomplicated (principal); R45.851 Suicidal ideations; Z79.899 Other long term (current) drug therapy; Y90.0 Blood alcohol level of less than 20 mg/100 ml
CPT/HCPCS: 36415; 80053; 80143; 80179; 80305; 80307; 81001; 83735; 84443; 85025; 96372; 99284; 99285; A9270-GY; J2060